=== PATIENT | male | born 1955 ===

== ENCOUNTER 2016-12-24 09:00 | Outpatient (RCR) | payer OTHER ==
--- NOTE | 2016-12-25 01:48 | History and Physical Report ---
DATE OF ADMISSION: 12/24/2016 HYPERBARIC OXYGEN CONSULTATION CONSULTING PHYSICIAN: Carlos Ashraf M.D. REASON FOR CONSULTATION: Hyperbaric oxygen. HISTORY OF PRESENT ILLNESS: This is a 61-year-old male who presents for evaluation of hyperbaric oxygen. The patient with a history of right ankle surgery requiring plate and pins approximately two years ago. The patient subsequently had hardware removal and has had issues with wound cultures and osteomyelitis. The patient is getting IV antibiotics and is here for evaluation has hyperbaric oxygen. PAST MEDICAL HISTORY: The patient's past medical history notable for hypertension, history of DVT back in 2013, and sarcoidosis, clinically stable. MEDICATIONS: Reviewed. ALLERGIES: Reviewed. PHYSICAL EXAMINATION: GENERAL: Well developed male, overall comfortable. VITAL SIGNS: Blood pressure 122/76, heart rate 80, temperature 98.3, and respiratory rate 14. HEENT: Overall negative. Tympanic membranes are clear. Oropharynx is clear. Nasopharynx is clear. LUNGS: Overall clear. CARDIAC: Normal S2. Regular rate and rhythm. EXTREMITIES: There is a cast in the right ankle. Pictures reviewed with what appeared to be dehiscence of the wound. IMPRESSION: 1. Osteomyelitis with wound dehiscence. 2. History of remote DVT. 3. History of hypertension. 4. History of sarcoidosis. RECOMMENDATIONS: The patient appears to be an appropriate candidate for hyperbaric oxygen. We will begin with 20 treatments at 90-minute intervals in two atmospheres with ongoing wound care and review for further intervention and treatment at that time. Carlos Ashraf M.D. DR: ADIEL JOB#: [id number] CC: EDILIA
== END 2016-12-31 | disposition home or self-care (01) ==
LOC: WCC 09:00
DX: S91.001A Unspecified open wound, right ankle, initial encounter (principal); T86.821 Skin graft (allograft) (autograft) failure; T81.32XA Disruption of internal operation (surgical) wound, not elsewhere classified, initial encounter; X58.XXXA Exposure to other specified factors, initial encounter; Y93.9 Activity, unspecified; Y92.9 Unspecified place or not applicable; Z96.649 Presence of unspecified artificial hip joint; Z79.82 Long term (current) use of aspirin
CPT/HCPCS: G0277; G0463

== ENCOUNTER 2017-01-03 06:00 | Outpatient (RCR) | payer OTHER | END 2017-01-30 | disposition home or self-care (01) | LOC: WCC 06:00 | DX: T86.821 Skin graft (allograft) (autograft) failure (principal); T81.32XA Disruption of internal operation (surgical) wound, not elsewhere classified, initial encounter; S91.001A Unspecified open wound, right ankle, initial encounter; X58.XXXA Exposure to other specified factors, initial encounter; Y93.9 Activity, unspecified; Y92.9 Unspecified place or not applicable; Z96.649 Presence of unspecified artificial hip joint; Z79.82 Long term (current) use of aspirin | CPT/HCPCS: G0277 ×15 ==